=== PATIENT | male | born 1975 | race Caucasian/White ===

== ENCOUNTER → 2021-03-20 | Outpatient (CLI) | payer OTHER ==
[~2021-03-20] MED LIST: DULO60CA7 PO; multivitamin PO; osteobiflex PO; vitamin d PO
== END ==
LOC: LAB 15:28
PROVIDERS: ATTEND Otolaryngology
DX: Z01.812 Encounter for preprocedural laboratory examination (principal); U07.1 COVID-19
CPT/HCPCS: U0003

== ENCOUNTER → 2021-04-09 | Day surgery (SDC) | payer OTHER ==
[~2021-04-09] MED LIST changes: +BUPIVACAINE MPF 0.25% 10 ML VIAL. ONE; +DEXAMETHASONE SOD PHOS 10 MG/ML VIAL. ONE; +IOHEXOL 300 MG/ML 50 ML VIAL. ONE; +LIDOCAINE 1% PF 30 ML VIAL. ONE
[2021-04-09 09:32] VITALS: BP 131/89
== END | disposition home or self-care (01) ==
LOC: SURG 08:00
PROVIDERS: ATTEND Anesthesiology
DX: M54.16 Radiculopathy, lumbar region (principal); J45.909 Unspecified asthma, uncomplicated; M51.36 Other intervertebral disc degeneration, lumbar region; M79.10 Myalgia, unspecified site; M51.26 Other intervertebral disc displacement, lumbar region
CPT/HCPCS: 64483; A4209; A4657; A4930; J1100; J3490; Q9967